=== PATIENT | female | born 1980 | race African-American/Black ===

== ENCOUNTER 2017-11-03 04:43 | Emergency (ER) | payer SELFPAY ==
[~2017-11-03] VITALS: Ht 170.2 cm; Wt 170.0 kg
[~2017-11-03 04:43] MED LIST: CLOM50TA2 PO; ZANT150T2 PO
[2017-11-03 04:45] VITALS: BP 130/90; PULSE 98; RESP 18; TEMP 98.4; O2SAT 100
[2017-11-03] MEDS ORDERED: SODIUM CHLOR 0.9% 1000 ML INJ 1,000 ML IV SCH (04:50)
[2017-11-03] MEDS ORDERED: MORPHINE SULFATE 4 MG/ML INJ IV PUSH ONE (05:00)
[2017-11-03] MEDS ORDERED: SODIUM CHLORIDE 0.9% FLUSH 10 ML FLUSH IV FLUSH PRN (05:00)
[2017-11-03] MEDS ORDERED: ONDANSETRON HCL 4 MG/2 ML VIAL IVP ONE (05:00)
--- NOTE | 2017-11-03 05:01 | PD ---
HPI Chief Complaint: Abdominal Pain Time Seen by Provider: 04:49 Travel History International Travel<30 days: No Contact w/Intl Traveler<30days: No Traveled to known affect area: No History of Present Illness HPI Patient gives a story of developing abdominal pain upper quadrants after eating pizza. Onset of pain was approximately 1-1/2-2 hours after eating pizza. Associated with nausea and vomiting but no diarrhea. The pain is described as sharp, 8 out of 10, nonradiating, involving the upper quadrants. Patient denies any alleviating or aggravating factors. Patient denies any associated factors such as fever, rash, cough, sore throat, headache, neck pain, flank pain or back pain, PFSH Past Medical History Medical History: Denies Significant Hx Diminished Hearing: No Tetanus Vaccination: Unknown Influenza Vaccination: No ?: Not LMP: 10/06/2017 Past Surgical History Surgical History: No Previous Surgery Social History Alcohol Use: No Tobacco Use: No Substance Use: No Allergies-Medications (Allergen,Severity, Reaction): Coded Allergies: amoxicillin (Unverified Adverse Reaction, Intermediate, Nausea/Vomiting, ) Reported Meds & Prescriptions Reported Meds & Active Scripts Active No Active Prescriptions or Reported Medications Review of Systems General / Constitutional: No: Fever Eyes: No: Visual changes HENT: No: Headaches Cardiovascular: No: Chest Pain or Discomfort Respiratory: No: Shortness of Breath Gastrointestinal: Positive: Nausea, Vomiting, Abdominal Pain Genitourinary: No: Dysuria Musculoskeletal: No: Pain Skin: No Rash Neurologic: No: Weakness Psychiatric: No: Depression Endocrine: No: Polydipsia Hematologic/Lymphatic: No: Easy Bruising Physical Exam Narrative GENERAL: SKIN: Warm and dry. HEAD: Atraumatic. Normocephalic. EYES: Pupils equal and round. No scleral icterus. No injection or drainage. ENT: No nasal bleeding or discharge. Mucous membranes pink and moist. NECK: Trachea midline. No JVD. CARDIOVASCULAR: Regular rate and rhythm. RESPIRATORY: No accessory muscle use. Clear to auscultation. Breath sounds equal bilaterally. GASTROINTESTINAL: Obese. Abdomen soft, tender to epigastric and right upper quadrant , nondistended. MUSCULOSKELETAL: Extremities without clubbing, cyanosis, or edema. No obvious deformities. NEUROLOGICAL: Awake and alert. No obvious cranial nerve deficits. Motor grossly within normal limits. Five out of 5 muscle strength in the arms and legs. Normal speech. PSYCHIATRIC: Appropriate mood and affect; insight and judgment normal. Data Data Last Documented VS Vital Signs Date Time Temp Pulse Resp B/P (MAP) Pulse Ox O2 Delivery O2 Flow Rate FiO2 11/03/17 06:07 103 18 128/60 (82) 98 Room Air 11/03/17 04:45 98.4 Orders Orders Complete Blood Count With Diff (11/03/17 04:50) Comprehensive Metabolic Panel (11/03/17 04:50) Lipase (11/03/17 04:50) Urinalysis - C+S If Indicated (11/03/17 04:50) Ct Abd/Pel W/O Iv Contrast (11/03/17 04:50) Iv Access Insert/Monitor (11/03/17 04:50) Ecg Monitoring (11/03/17 04:50) Oximetry (11/03/17 04:50) NPO (11/03/17 04:50) Morphine Inj (Morphine Inj) (11/03/17 05:00) Ondansetron Inj (Zofran Inj) (11/03/17 05:00) Sodium Chlor 0.9% 1000 Ml Inj (Ns 1000 M (11/03/17 04:50) Sodium Chloride 0.9% Flush (Ns Flush) (11/03/17 05:00) Ed Urine Pregnancytest Poc (11/03/17 04:50) Hydromorphone Pf Inj (Dilaudid Pf Inj) (11/03/17 06:45) Labs Laboratory Tests Test 11/03/17 05:50 11/03/17 05:54 White Blood Count 7.9 TH/MM3 Red Blood Count 4.49 MIL/MM3 Hemoglobin 12.0 GM/DL Hematocrit 36.9 % Mean Corpuscular Volume 82.1 FL Mean Corpuscular Hemoglobin 26.7 PG Mean Corpuscular Hemoglobin Concent 32.5 % Red Cell Distribution Width 15.0 % Platelet Count 335 TH/MM3 Mean Platelet Volume 7.4 FL Neutrophils (%) (Auto) 69.7 % Lymphocytes (%) (Auto) 23.2 % Monocytes (%) (Auto) 5.5 % Eosinophils (%) (Auto) 1.2 % Basophils (%) (Auto) 0.4 % Neutrophils # (Auto) 5.5 TH/MM3 Lymphocytes # (Auto) 1.8 TH/MM3 Monocytes # (Auto) 0.4 TH/MM3 Eosinophils # (Auto) 0.1 TH/MM3 Basophils # (Auto) 0.0 TH/MM3 CBC Comment DIFF FINAL Differential Comment Blood Urea Nitrogen 13 MG/DL Creatinine 1.10 MG/DL Random Glucose 125 MG/DL Total Protein 8.3 GM/DL Albumin 3.3 GM/DL Calcium Level 9.0 MG/DL Alkaline Phosphatase 100 U/L Aspartate Amino Transf (AST/SGOT) 14 U/L Alanine Aminotransferase (ALT/SGPT) 27 U/L Total Bilirubin 0.2 MG/DL Sodium Level 140 MEQ/L Potassium Level 3.8 MEQ/L Chloride Level 105 MEQ/L Carbon Dioxide Level 27.4 MEQ/L Anion Gap 8 MEQ/L Estimat Glomerular Filtration Rate 67 ML/MIN Lipase 112 U/L [facility] Medical Decision Making Medical Screen Exam Complete: Yes Emergency Medical Condition: Yes Medical Record Reviewed: Yes Differential Diagnosis Dyspepsia versus pancreatitis versus biliary colic versus colitis versus renal stone versus diverticulitis Narrative Course No leukocytosis, no anemia, normal platelet count, no left shift Electrolytes are all within normal limits, normal kidney functions normal liver functions and normal pancreatic functions. Diagnosis Primary Impression: Biliary colic Patient Instructions: Gallstones (ED), General Instructions Scripts Tramadol (Ultram) 50 Mg Tab 50 MG PO Q6H Y for PAIN for 3 Days, #12 TAB 0 Refills Prov: Edgardo Mills MD 11/03/17 Ondansetron Odt (Zofran Odt) 4 Mg Tab 4 MG SL Q6HR Y for Nausea/Vomiting, #12 TAB 0 Refills Prov: Edgardo Mills MD 11/03/17 Disposition: 01 DISCHARGE HOME Condition: Stable Edgardo Mills MD Nov 03, 2017 05:00
[2017-11-03 05:39] VITALS: RESP 18; O2SAT 100
[2017-11-03 06:07] VITALS: BP 128/60; PULSE 103; RESP 18; O2SAT 98
[2017-11-03 06:24] LABS: AUTOMATED NEUTROPHIL # 5.5 TH/MM3 (1.8-7.7); BASOPHIL % 0.4 % (0.0-2.0); EOSINOPHIL # 0.1 TH/MM3 (0-0.4); EOSINOPHIL % 1.2 % (0.0-4.0); HEMATOCRIT 36.9 % (35.0-46.0); LYMPH % 23.2 % (9.0-44.0); LYMPHOCYTE # 1.8 TH/MM3 (1.0-4.8); MEAN CELL VOLUME 82.1 FL (80.0-100.0); MEAN CORPUSCULAR HEMOGLOBIN 26.7 PG (27.0-34.0); MEAN CORPUSCULAR HGB CONC 32.5 % (32.0-36.0); MEAN PLATELET VOLUME 7.4 FL (7.0-11.0); MONO % 5.5 % (0.0-8.0); MONOCYTE # 0.4 TH/MM3 (0-0.9); NEUT % 69.7 % (16.0-70.0); PLATELET COUNT 335 TH/MM3 (150-450); RED BLOOD COUNT 4.49 MIL/MM3 (4.00-5.30); WHITE BLOOD COUNT 7.9 TH/MM3 (4.0-11.0)
[2017-11-03 06:37] LABS: ALBUMIN 3.3 GM/DL (3.4-5.0); ALT (GPT) 27 U/L (10-53); AST (GOT) 14 U/L (15-37); BICARBONATE 27.4 MEQ/L (21.0-32.0); BLOOD UREA NITROGEN 13 MG/DL (7-18); CHLORIDE 105 MEQ/L (98-107); GLOMERULAR FILTRATION RATE 67 ML/MIN (>89); GLUCOSE,RANDOM 125 MG/DL (74-106); SODIUM (NA) 140 MEQ/L (136-145)
[2017-11-03 06:40] LABS: ALKALINE PHOSPHATASE 100 U/L (45-117); TOTAL BILIRUBIN ADULT 0.2 MG/DL (0.2-1.0); TOTAL PROTEIN 8.3 GM/DL (6.4-8.2)
--- NOTE | 2017-11-03 06:43 | RADRPT ---
EXAM DATE/TIME: 11/03/2017 06:15 [place] COMPARISON: No previous studies available for comparison. INDICATIONS : Abdominal pain and nausea. ORAL CONTRAST: No oral contrast ingested. RADIATION DOSE: 28.79 CTDIvol (mGy) ; Patient body habitus MEDICAL HISTORY : None SURGICAL HISTORY : None. ENCOUNTER: Initial ACUITY: 1 day PAIN SCALE: 7/10 LOCATION: abdomen TECHNIQUE: Volumetric scanning of the abdomen and pelvis was performed. Using automated exposure control and ad justment of the mA and/or kV according to patient size, radiation dose was kept as low as reasonably achievable to obtain optimal diagnostic quality images. DICOM format image data is available electro nically for review and comparison. FINDINGS: LOWER LUNGS: Patchy areas of non-consolidative infiltrate present in the lower lungs bilaterally. LIVER: Homogeneous density without lesion for noncontrast technique. There is no dilation of the biliary tr ee. No calcified gallstones. SPLEEN: Normal size without lesion. PANCREAS: Within normal limits. KIDNEYS: Normal in size and shape. There is no mass, stone, or hydronephrosis. Solitary calcification in the posterior lower pole left kidney measuring 7 mm; it is uncertain whether this calcification is in a lower pole calyx or in the cortex of the left kidney. ADRENAL GLANDS: Within normal limits. VASCULAR: There is no aortic aneurysm. BOWEL/MESENTERY: No dilated loops of small or large bowel. No evidence of free fluid. ABDOMINAL WALL: Within normal limits. RETROPERITONEUM: There is no lymphadenopathy. BLADDER: No wall thickening or mass. REPRODUCTIVE: Within normal limits. INGUINAL: There is no lymphadenopathy or hernia. MUSCULOSKELETAL: Within normal limits for patient age. CONCLUSION: 1. No dilated loops of bowel. 2. 7 mm calcification lower pole left kidney, either parenchymal or in a non-distended calyx. 3. Non-consolidative bilateral lower lung infiltrates. Jules Ybarra MD on November 03, 2017 at 6:37 Board Certified Radiologist. This report was verified electronically.
[2017-11-03] MEDS ORDERED: HYDROmorphone HCL PF 1 MG/ML VIAL IVS ONE (06:45)
[2017-11-03] MEDS ORDERED: ZOFR4TAB3 SL (06:47)
[2017-11-03] MEDS ORDERED: TRAM50 PO (06:47)
[2017-11-03] MEDS ORDERED: HYDROmorphone HCL PF 2 MG/ML VIAL IV PUSH ONE (07:00)
[2017-11-03 07:16] VITALS: BP 129/58; PULSE 77; RESP 15; TEMP 98.1; O2SAT 100
[2017-11-03 07:17] LABS: BACTERIA, URINE OCC /hpf; BILIRUBIN, URINE NEG (NEG); BLOOD, URINE NEG (NEG); GLUCOSE,URINE NEG (NEG); KETONE, URINE NEG (NEG); MUCUS URINE FEW /lpf (OCC); NITRITE,URINE NEG (NEG); PH, URINE 5.5 (5.0-8.5); SQUAMOUS EPITHELIAL CELL URINE 6 /hpf (0-5); URINE COLOR LIGHT-YELLOW (YELLW/STRAW); URINE LEUKOCYTE ESTERASE NEG (NEG)
[2017-11-03 07:21] VITALS: BP 134/75; TEMP 98.1
== END 2017-11-03 07:30 | disposition home or self-care (01) ==
LOC: NEPC 04:43
DX: K80.50 Calculus of bile duct without cholangitis or cholecystitis without obstruction (principal)
CPT/HCPCS: 74176; 80053; 81001; 83690; 84703; 85025; 96361; 96374; 96375; 99284; J1170; J2270; J2405; J7030